=== PATIENT | male | born 1990 | race African-American/Black ===

== ENCOUNTER 2023-09-19 20:22 | Emergency (ER) | payer OTHER ==
--- OUTSIDE RECORDS SUMMARY | 2023-09-19 20:25 | XMS REPORT | Continuity of Care Document ---
Author Name Unknown Address [address] [place] [address] [facility] thconnect Address [address] [place] [address] Care Team Providers Care Onsite Health Coach Name Role Phone Crescencio Farley Attending Clinician Unavailable Physician, No Primary or Family Admitting Clinic rosa m Unavailable Payers Payer Name Policy Type Policy Number Effective Date Expirati on Date Source Encounters Start Date/Time End Date/Time Encounter Type Admission Type Attending Clinicians Care Facility Care Department Encounter ID Source 2023-06-20 07:27:00 2023-06-20 07:27:00 Outpatient Crescencio SORTO Che [facility] RADI [id number] [address] [facility] Results Test Description Test Time Test Comments Results Resul t Comments Source - [employer] 2023-06-20 11:37:00 [facility] 1990 Sex: M * Name: IFEANYI REZA : 1990 Age/S: 33 / M [id number] Unit #: [id number] Loc: [place] [address] Phys: Crescencio Farley Acct: [id number] Dis Date: Status: REG CLI PHONE #: [phone] Exam Date: 06/20/2023 0847 FAX #: Reason: DYSURIA, HEMATURIA UNSPECIFIED EXAMS: CPT: [id number] US RETROPERITONEAL COM [id number] Location Code: S17 EXAMINATION: - US RETROPERITONEAL COM CLINICAL INDICATION: Male, 33 years old with DYSURIA, HEMATURIA UNSPECIFIED COMPARISON: None TECHNIQUE: Grayscale, color Doppler, and spectral waveform analysis of the kidneys and bladder is performed. FINDINGS: Kidneys: There is normal renal cortical echogenicity. Right Kidney: The right kidney measures 9.5 x 6.3 x 5.5 cm in size. No hydronephrosis. No suspicious renal mass noted. No renal calculi noted. Left Kidney: The left kidney measures 9.2 x 6.9 x 4.7 cm in size. No hydronephrosis. No suspicious renal mass noted. No renal calculi noted. Bladder: The bladder is unremarkable. IMPRESSION: Essentially unremarkable examination. at 1137 Reported and signed by: Eber Recio M.D. CC: Crescencio ZHONG Technologist: Ladonna Solano RDMS Trnscb Date/Time: 06/20/2023 (1137) [email or web address] PAGE 1 Signed Report Name: IFEANYI REZA : 1990 Age/S: 33 / M [id number] Unit #: [id number] Loc: [place] [address] Phys: Crescencio Farley Acct: [id number] Dis Date: Status: REG CLI PHONE #: [phone] Exam Date: 06/20/2023 0847 FAX #: Reason: DYSURIA, HEMATURIA UNSPECIFIED EXAMS: CPT: [id number] US RETROPERITONEAL COM 10181 (Continued) Orig Print D/T: S: 06/20/2023 (1140) Probe: PAGE 2 Signed Report
[2023-09-19] MEDS ORDERED: HYDROCODONE/APAP 7.5/325 MG TAB ONE (21:22)
--- NOTE | 2023-09-19 22:09 | RAD REPORT ---
EXAM DESCRIPTION: RAD - Ankle Right 3 View - 09/19/2023 9:32 pm CLINICAL HISTORY: PAIN COMPARISON: No comparisons TECHNIQUE: Right ankle, 3 views. FINDINGS: No fracture, dislocation or periosteal reaction. Cannulated screw along the fifth metatars al. Small calcaneal spur. No joint effusion seen. No joint space narrowing. No soft tissue abnormalit y. IMPRESSION: No acute osseous abnormality. Small calcaneal spur. .
--- NOTE | 2023-09-19 22:55 | RAD REPORT ---
EXAM DESCRIPTION: US - Extremity Nonvascular Limited - 09/19/2023 10:08 pm CLINICAL HISTORY: PAIN COMPARISON: No comparisons TECHNIQUE: Sonographic grayscale and color flow images of the right lower leg/heel were obtained. FINDINGS: Evaluation of the right Achilles tendon region reveals thickening and heterogeneous hypoec hoic signal of the tendon. A short segment of the tendon reveals extensive shadowing. No visible tend on gap is seen. Comparison images of the contralateral Achillis tendon are unremarkable IMPRESSION: Findings suggesting at least a partial Achilles tendon tear. No visible tendon gap is vi sualized. If full-thickness versus partial-thickness tears needed to be differentiated, additional ev aluation by MRI would be more helpful.
--- NOTE | 2023-09-19 23:25 | EDPHYS ---
Physician Documentation [facility] Name: Christian Ledezma Age: 33 yrs Sex: Male : 1990 Arrival Date: 09/19/2023 Time: 20:22 Bed DX5 Private MD: ED Physician Julius Diaz HPI: 09/18 21:05 This 33 yrs old Black Male presents to ER via Wheelchair with complaints of Foot cp Injury, Foot Pain. 21:05 The patient presents with an injury, pain, that is acute. The complaints affect the cp right Achilles. Context: while playing basketball felt "pop" and immediate pain. Onset: The symptoms/episode began/occurred just prior to arrival. Associated signs and symptoms: Pertinent positives: calf tenderness. Treatment prior to arrival includes: no previous treatment. Historical: - Allergies: 20:34 No Known Allergies; as6 - PMHx: 20:34 None; as6 - PSHx: 20:34 shoulder; ankle; as6 - Immunization history:: Adult Immunizations not up to date. - Infectious Disease History:: Denies. - Social history:: Smoking status: Patient denies any tobacco usage or history of. ROS: 21:15 MS/extremity: Positive for injury or acute deformity, decreased range of motion, pain, cp of the right Achilles, Negative for paresthesias, 21:15 Constitutional: Negative for body aches, chills, fever, cp 21:15 Neck: Negative for pain with movement, pain at rest, 21:15 Back: Negative for pain at rest, pain with movement, 21:15 Neuro: Positive for weakness, of the right foot, Negative for numbness, 21:15 All other systems are negative, Exam: 21:20 Constitutional: The patient appears in no acute distress, alert, awake, well developed, cp well nourished, uncomfortable, 21:20 Head/Face: Normocephalic, atraumatic. cp 21:20 Neck: ROM/movement: is normal, is supple, without pain, no range of motions limitations, 21:20 Back: pain, is absent, ROM is normal, 21:20 Musculoskeletal/extremity: Extremities: grossly normal except: noted in the right Achilles and right ankle: palpable defect of right Achilles with tenderness to palpation, patient unable to plantar flex right foot, mild ankle tenderness, Calves: positive Thomas test on right, Vital Signs: 20:33 BP 141 / 96; Pulse 92; Resp 18; Temp 97.4; Pulse Ox 100% ; Weight 84.82 kg; Height 5 as6 ft. 11 in. ; Pain 5/10; 20:33 Body Mass Index 26.08 (84.82 kg, 180.34 cm) as6 20:33 Pain Scale: Adult as6 MDM: 20:35 Patient medically screened. cp 22:00 Differential diagnosis: dislocation, closed fracture, tendonitis, Achilles tear. cp 23:23 Data reviewed: vital signs, nurses notes, radiologic studies, plain films, ultrasound, cp and as a result, I will discharge patient. 23:23 I considered the following discharge prescriptions or medication management in the cp emergency department Medications were administered in the Emergency Department. See MAR. Counseling: I had a detailed discussion with the patient and/or guardian regarding radiology results, the need for outpatient follow up, for definitive care, a orthopedic surgeon. ED course: Patient placed in Walking boot and crutches given. 09/18 20:58 Order name: XRAY Ankle RIGHT 3 view; Complete Time: 23:18 cp 09/18 21:08 Order name: US Extrmty Nonvasular Limited: right Achilles tendon; Complete Time: 23:18 cp 09/18 23:22 Order name: Walking boot; Complete Time: 23:46 cp 09/18 23:22 Order name: Crutches; Complete Time: 23:46 cp Administered Medications: 21:25 Drug: Hydrocodone-Acetaminophen PO (7.5 mg-325 mg) 1 tabs PO once; RASS on ADMIN: as6 Combtv4, Very Agttd3, Agttd2, Rstlss1, AlertClm0, Drwsy-1, Lt Sdtn-2, Mod Sdtn-3, Dp Sdtn-4, UnArsble-5 Route: PO; Disposition Summary: 09/19/23 23:24 Discharge Ordered Notes: Location: Home cp Problem: new cp Symptoms: have improved cp Condition: Stable cp Diagnosis - Injury of Achilles tendon - right cp Followup: cp - With: Dwight Ellis MD - When: 2 - 3 days - Reason: Recheck today's complaints Discharge Instructions: - Discharge Summary Sheet cp - Achilles Tendon Tear cp Forms: - Medication Reconciliation Form cp - Antibiotic Education cp - Prescription Opioid Use cp - Patient Portal Instructions cp - Leadership Thank You Letter cp Prescriptions: - Ibuprofen 800 mg Oral Tablet - take 1 tablet ORAL route every 8 hours As needed take with food; 30 tablet; cp Refills: 0, Product Selection Permitted - Tramadol 50 mg Oral Tablet - take 1 tablet ORAL route every 8 hours as needed; 12 tablet; Refills: 0, cp Product Selection Permitted Addendum: 09/21/2023 03:47 Co-signature as Attending Physician, Julius Diaz MD I agree with the assessment s p4 and plan of care. I reviewed the patient's care provided by the Advanced Practice Provider and agree with the diagnosis and treatment plan. Signatures: Dispatcher [employer] EDAZ Joseph Haddad PA PA cp Slawson, Ashby, RN RN as6 Julius Diaz MD MD sp4
--- NOTE | 2023-09-19 23:25 | ER ---
Nurse's Notes [facility] Name: Christian Ledezma Age: 33 yrs Sex: Male : 1990 Arrival Date: 09/19/2023 Time: 20:22 Bed DX5 Private MD: Diagnosis: Injury of Achilles tendon-right Presentation: 09/18 20:33 Chief complaint: Patient states: pt was playing basketball and heard a pop to his right as6 ankle. Coronavirus screen: At this time, the client does not indicate any symptoms associated with coronavirus-19. Ebola Screen: No symptoms or risks identified at this time. Initial Sepsis Screen: Does the patient meet any 2 criteria? No. Patient's initial sepsis screen is negative. Does the patient have a suspected source of infection? No. Patient's initial sepsis screen is negative. Risk Assessment: Do you want to hurt yourself or someone else? Patient reports no desire to harm self or others. Onset of symptoms was September 19, 2023. 20:33 Method Of Arrival: Wheelchair as6 20:33 Acuity: NATALYA 4 as6 Historical: - Allergies: 20:34 No Known Allergies; as6 - PMHx: 20:34 None; as6 - PSHx: 20:34 shoulder; ankle; as6 - Immunization history:: Adult Immunizations not up to date. - Infectious Disease History:: Denies. - Social history:: Smoking status: Patient denies any tobacco usage or history of. Screenin:46 [facility] ED Fall Risk Assessment (Adult) History of falling in the last 3 months, jb4 including since admission No falls in past 3 months (0 pts) Confusion or Disorientation No (0 pts) Intoxicated or Sedated No (0 pts) Impaired Gait No (0 pts) Mobility Assist Device Used No (0 pt) Altered Elimination No (0 pt) Score/Fall Risk Level 0 - 2 = Low Risk Oriented to surroundings, Maintained a safe environment. Abuse screen: Denies threats or abuse. Nutritional screening: No deficits noted. Tuberculosis screening: No symptoms or risk factors identified. Assessment: 23:46 General: Appears in no apparent distress. comfortable, Behavior is calm, cooperative, jb4 appropriate for age. Pain: Complains of pain in right foot Pain does not radiate. Pain currently is 3 out of 10 on a pain scale. Neuro: Level of Consciousness is awake, alert, obeys commands, Oriented to person, place, time, situation. Cardiovascular: Patient's skin is warm and dry. Respiratory: Airway is patent Respiratory effort is even, unlabored, Respiratory pattern is regular, symmetrical. GI: No signs and/or symptoms were reported involving the gastrointestinal system. : No signs and/or symptoms were reported regarding the genitourinary system. EENT: No signs and/or symptoms were reported regarding the EENT system. Derm: Skin is intact, Skin is pink, warm \T\ dry. Musculoskeletal: Circulation, motion, and sensation intact. Range of motion: intact in all extremities. Vital Signs: 20:33 BP 141 / 96; Pulse 92; Resp 18; Temp 97.4; Pulse Ox 100% ; Weight 84.82 kg; Height 5 as6 ft. 11 in. ; Pain 5/10; 20:33 Body Mass Index 26.08 (84.82 kg, 180.34 cm) as6 20:33 Pain Scale: Adult as6 ED Course: 20:26 Patient arrived in ED. gm2 20:28 Joseph Haddad PA is PHCP. cp 20:28 Julius Diaz MD is Attending Physician. cp 20:33 Arm band placed on. as6 20:34 Triage completed. as6 21:34 XRAY Ankle RIGHT 3 view In Process Unspecified. EDMS 22:10 US Extrmty Nonvasular Limited: right Achilles tendon In Process Unspecified. EDMS 23:24 Dwight Ellis MD is Referral Physician. cp 23:46 Patient has correct armband on for positive identification. Bed in low position. Call jb4 light in reach. Side rails up X 1. Provided Education on: discharge instructions.. 23:46 No provider procedures requiring assistance completed. Patient did not have IV access jb4 during this emergency room visit. Administered Medications: 21:25 Drug: Hydrocodone-Acetaminophen PO (7.5 mg-325 mg) 1 tabs PO once; RASS on ADMIN: as6 Combtv4, Very Agttd3, Agttd2, Rstlss1, AlertClm0, Drwsy-1, Lt Sdtn-2, Mod Sdtn-3, Dp Sdtn-4, UnArsble-5 Route: PO; Medication: 23:46 VIS not applicable for this client. jb4 Outcome: 23:24 Discharge ordered by . cp 23:46 Discharged to home with crutchesmilagros 23:46 Condition: stable 23:46 Discharge instructions given to patient, Instructed on discharge instructions, follow up and referral plans. medication usage, Demonstrated understanding of instructions, follow-up care, medications, Prescriptions given X 2, 23:49 Patient left the ED. jb4 Signatures: Dispatcher [employer] EDMS Joseph Haddad PA PA cp Bryson, James, RN RN jb4 Trevor Montes RN RN as6 Roselyn Dickson gm2
[2023-09-20 00:07] VITALS: BP 141/96; TEMP 97.4; O2SAT 100
== END 2023-09-19 23:49 | disposition home or self-care (01) ==
LOC: ER 20:22
DX: S86.001A Unspecified injury of right Achilles tendon, initial encounter (principal)
CPT/HCPCS: 76882; 99283